=== PATIENT | male | born 1980 | race Two or more races ===

== ENCOUNTER 2019-05-17 12:59 | Emergency (ER) | payer OTHER ==
[~2019-05-17] VITALS: Ht 170.2 cm; Wt 86.2 kg
[2019-05-17 13:06] VITALS: BP 159/103
[2019-05-17] MEDS ORDERED: ACETAMINOPHEN 325 MG TABLET PO ONE (13:30)
[2019-05-17] MEDS ORDERED: ACETAMINOPHEN ES 500 MG TABLET ONE (14:03)
== END 2019-05-17 15:43 | disposition home or self-care (01) ==
LOC: ER 13:00
DX: S50.812A Abrasion of left forearm, initial encounter (principal); M54.5 Low back pain; M25.532 Pain in left wrist; M25.572 Pain in left ankle and joints of left foot; V49.49XA Driver injured in collision with other motor vehicles in traffic accident, initial encounter; Y93.89 Activity, other specified; Y92.488 Other paved roadways as the place of occurrence of the external cause; Y99.8 Other external cause status
CPT/HCPCS: 73090-TC; 73110; 73610-TC